=== PATIENT | female | born 1950 | race African-American/Black ===

== ENCOUNTER 2018-06-17 05:08 | Inpatient (IN) | payer OTHER ==
[2018-06-03 10:57] VITALS: BMI 30.4
[2018-06-17] MEDS ORDERED: LIDOCAINE HCL/PF 2% SDV 5ML VIAL ONE (07:16)
[2018-06-17] MEDS ORDERED: ONDANSETRON 4 MG/2 ML VIAL ONE (07:16)
[2018-06-17] MEDS ORDERED: DEXAMETHASONE SOD PHOSPHATE 4 MG/1 ML VIAL ONE (07:16)
[2018-06-17] MEDS ORDERED: SUCCINYLCHOLINE CHLORIDE 200 MG/10 ML VIAL ONE (07:16)
[2018-06-17] MEDS ORDERED: MIDAZOLAM HCL 2 MG/2 ML SINGLE DOSE VIAL ONE (07:16)
[2018-06-17] MEDS ORDERED: fentaNYL CITRATE 250 MCG/5 ML VIAL ONE (07:16)
[2018-06-17] MEDS ORDERED: PROPOFOL 20 ML ONE (07:16)
[2018-06-17] MEDS ORDERED: ROCURONIUM BROMIDE 50 MG/5 ML VIAL ONE (07:16)
[2018-06-17] MEDS ORDERED: LIDOCAINE HCL 2% (20ML MULTI-DOSE VIAL) NR ONE (07:27)
[2018-06-17] MEDS ORDERED: THROMBIN (BOVINE) 20,000 UNIT VIAL TP ONE (07:27)
[2018-06-17] MEDS ORDERED: BENZOIN TINCTURE SWABSTICK TP ONE (07:28)
[2018-06-17] MEDS ORDERED: DESFLURANE GAS 240 ML BOTTLE IH ONE (07:41)
--- NOTE | 2018-06-17 07:59 | HP ---
History & Physical Update - History History: No Change - Physical Physical: No Change - Assessment Assessment: No Change - Plan Plan: No Change (Full H&P in chart from Dr. Jimenez on 05/31/18)
[2018-06-17] MEDS ORDERED: ceFAZolin SODIUM 1 GM VIAL IVPB ONE (08:27)
[2018-06-17] MEDS ORDERED: LIDOCAINE 1%/EPI 1:100000 (50 ML MULTI DOSE VIAL) INF ONE (08:50)
[2018-06-17] MEDS ORDERED: VANCOMYCIN 1,000 MG VIAL (RESTRICTED TO ID ONLY) IVPB ONE (08:50)
[2018-06-17] MEDS ORDERED: VANCOMYCIN 1,000 MG VIAL (RESTRICTED TO ID ONLY) ONE (08:52)
[2018-06-17] MEDS ORDERED: ceFAZolin SODIUM 1 GM VIAL ONE (08:52)
[2018-06-17] MEDS ORDERED: ePHEDrine SULFATE 50 MG/1 ML AMPULE ONE (08:59)
[2018-06-17] MEDS ORDERED: GELATIN SPONGE,ABSORBABLE 1 GM PACKET TP ONE (09:24)
[2018-06-17] MEDS ORDERED: THROMBIN (BOVINE) 5,000 UNIT VIAL TP ONE (09:24)
[2018-06-17] MEDS ORDERED: NEOSTIGMINE METHYLSULFATE 0.5 MG/1 ML - 10 ML MDV ONE (09:48)
[2018-06-17] MEDS ORDERED: GLYCOPYRROLATE 0.2 MG/1 ML VIAL ONE (09:49)
[2018-06-17] MEDS ORDERED: morphine CARPU-JECT 4 MG/1 ML DISP.SYRIN IVPUSH PRN (10:14)
[2018-06-17] MEDS ORDERED: oxyCODONE HCL 5 MG TABLET PO PRN (10:14)
[2018-06-17] MEDS ORDERED: diphenhydrAMINE HCL 25 MG CAPSULE (FP) PO PRN (10:14)
--- NOTE | 2018-06-17 10:26 | OP ---
Operative Note - Note: Operative Date: 06/17/18 Pre-Operative Diagnosis: C5/6 disc herniation and spondylosis Operation: C5 Caudal hemicorpectomy with C6 rostral major hemicorpectomy, lordosis cheondoism and reconstruction with Peek Cage and anterior plate Post-Operative Diagnosis: Same as Pre-op Surgeon: Lalo Davenport Secondary Education Professor: Guerrero Mendez Anesthesiologist/FLORICULTURIST: Nitish Louis Anesthesia: General Estimated Blood Loss (mls): 10 Operative Report Dictated: Yes
[2018-06-17] MEDS: HYDROmorphone HCL CARPU-JECT 2 MG/1 ML DISP.SYRIN IVPUSH ONE ×4 (13:29→13:59)
[2018-06-17] MEDS ORDERED: HYDROmorphone HCl 2 MG/ML VIAL ONE (13:29)
--- NOTE | 2018-06-17 15:33 | PN ---
Progress Note, Physician Chief Complaint: patient seen and examined s/p neck surgery complaining of discomfort says morphine does not help her dilaudid works for her - Current Medication List Current Medications: Active Medications Diphenhydramine HCl (Benadryl -) 25 mg PO Q6H PRN PRN Reason: FOR ITCHING Docusate Sodium (Colace -) 100 mg PO TID [facility] Ferrous Sulfate (Feosol -) 325 mg PO DAILY@0800 [facility] Folic Acid (Folic Acid -) 1 mg PO DAILY [facility] Heparin Sodium (Porcine) (Heparin -) 5,000 unit SQ Q8H [facility] Hydromorphone HCl (Dilaudid Injection -) 0.5 mg IVPUSH ONCE ONE Stop: 06/17/18 13:30 Last Admin: 06/17/18 13:59 Dose: 0.5 mg Hydromorphone HCl (Dilaudid Injection -) 2 mg IVPB Q4H PRN PRN Reason: PAIN LEVEL 7 - 10 Cefazolin Sodium (Ancef 1 Gm Premixed Ivpb -) 1 gm in 50 mls @ 100 mls/hr IVPB Q8H-IV [facility] Stop: 06/18/18 17:59 Lactated Ringer's (Lactated Ringers Solution) 1,000 ml in 1,000 mls @ 125 mls/ hr IV ASDIR [facility] Ondansetron HCl (Zofran Injection) 4 mg IVPUSH Q6H PRN PRN Reason: NAUSEA Oxycodone HCl (Roxicodone -) 5 mg PO Q4H PRN PRN Reason: PAIN LEVEL 1-5 Oxycodone HCl (Roxicodone -) 10 mg PO Q4H PRN PRN Reason: PAIN LEVEL 6-10 - Objective Vital Signs: Vital Signs Temperature 98 F 06/17/18 14:55 Pulse Rate 56 L 06/17/18 14:55 Respiratory Rate 18 06/17/18 14:55 Blood Pressure 144/65 06/17/18 14:55 O2 Sat by Pulse Oximetry (%) 100 06/17/18 14:55 Constitutional: Yes: Calm Neck: Yes: Other (neck collar KIMI drain serosanginous drainage) Cardiovascular: Yes: Regular Rate and Rhythm, S1, S2 Respiratory: Yes: CTA Bilaterally Gastrointestinal: Yes: Normal Bowel Sounds, Soft Edema: No Neurological: Yes: Alert, Oriented Problem List - Problems (1) S/P neck surgery, follow-up exam Assessment/Plan: cervical collar iv dilaudid prn morphine iv not helping ct scan s/p anterior fusion of C5-C6 oral meds stool softner soft diet dvt ppx heparin sub q Code(s): Z09 - ENCNTR FOR F/U EXAM AFT TRTMT FOR COND OTH THAN MORIAH NEOPLM
[2018-06-17] MEDS: DOCUSATE SODIUM 100 MG CAPSULE (FP) PO SCH ×2 (16:18→21:48)
[2018-06-17] MEDS: LACTATED RINGERS SOLUTION 1,000 ML/1,000 ML INFUS.BAG IV SCH ×2 (16:18→21:49)
[2018-06-17] MEDS ORDERED: CEFAZOLIN 1 GM/D5W 1 GM/50 ML BAG IVPB SCH (16:30)
[2018-06-17] MEDS: ONDANSETRON 4 MG/2 ML VIAL IVPUSH PRN (17:06)
[2018-06-17] MEDS: HYDROmorphone HCl 2 MG/ML VIAL IVPB PRN (18:06)
--- NOTE | 2018-06-17 18:26 | CONSULT ---
Consult Consult Specialty:: Pain Management Referred by:: Dr Davenport Reason for Consultation:: Neck pain - History of Present Illness Chief Complaint: Neck pain s/p Cervical fusion History of Present Illness: 68 yr old female with Neck pain 10/ s/p cervical fusion today . Mentioned Dialudid helps. feeling very comfortable. 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: Alzheimer's, CVA, Dementia, Migraine, Multiple Sclerosis, Peripheral Neuropathy, Parkinson's, Seizure, Syncope, TIA, Vertigo, Other ...: No - Alcohol/Substance Use Hx Alcohol Use: Yes (rare) - Smoking History Smoking history: Former smoker Have you smoked in the past 12 months: No If you are a former smoker, when did you quit?: 30 years - Social History Usual Living Arrangement: With Child ADL: Independent Home Medications - Allergies Allergies/Adverse Reactions: Allergies Allergy/AdvReac Type Severity Reaction Status Date / Time Latex, Natural Rubber Allergy Severe Hives Verified 06/03/18 10:24 shellfish derived Allergy Severe Difficulty Verified 06/03/18 10:24 Breathing lisinopril Allergy Intermediate Swelling Verified 06/03/18 10:24 Penicillins Allergy Intermediate Rash Verified 06/03/18 10:24 - Home Medications Home Medications: Ambulatory Orders Albuterol Sulfate [Proair Respiclick] 90 mcg IH PRN PRN 06/03/18 Amlodipine Besylate 10 mg PO DAILY 06/03/18 Cetirizine HCl [Zyrtec -] 10 mg PO DAILY 06/03/18 Clonidine HCl [Clonidine HCl ER] 0.1 mg PO DAILY 06/03/18 Docusate Sodium [Colace -] 200 mg PO HS 06/03/18 Fluticasone/Salmeterol [Advair 250-50 Diskus] 1 each IH BID 06/03/18 Furosemide [Lasix] 20 mg PO DAILY 06/03/18 Losartan Potassium 100 mg PO DAILY 06/03/18 Metoprolol Succinate 50 mg PO DAILY 06/03/18 Montelukast Sodium [Singulair] 10 mg PO DAILY 06/03/18 Omalizumab [Xolair] 150 mg SQ PRN PRN 06/03/18 Omeprazole Magnesium [Prilosec Otc] 20 mg PO PRN PRN 06/03/18 Prednisolone 10 mg PO PRN PRN 06/03/18 Pregabalin [Lyrica] 50 mg PO TID 06/03/18 Review of Systems - Review of Systems Constitutional: reports: No Symptoms Eyes: reports: No Symptoms HENT: reports: No Symptoms Neck: reports: Other (pain , cervical collar) Cardiovascular: reports: No Symptoms Respiratory: reports: No Symptoms Gastrointestinal: reports: No Symptoms Genitourinary: reports: No Symptoms Neurological: reports: No Symptoms Psychiatric: reports: No Symptoms Pain Intensity: 10 Physical Exam Vital Signs: Vital Signs Temperature 97.6 F 06/17/18 16:30 Pulse Rate 56 L 06/17/18 16:30 Respiratory Rate 20 06/17/18 16:30 Blood Pressure 154/79 06/17/18 16:30 O2 Sat by Pulse Oximetry (%) 99 06/17/18 16:00 Constitutional: Yes: Well Nourished Eyes: Yes: WNL HENT: Yes: WNL Neck: Yes: Decreased ROM, Other (cervical collar) Cardiovascular: Yes: WNL Respiratory: Yes: WNL Gastrointestinal: Yes: WNL Musculoskeletal: Yes: WNL Edema: No Neurological: Yes: WNL Labs: Current Medications Amlodipine Besylate (Norvasc -) 10 mg PO DAILY [facility] Diphenhydramine HCl (Benadryl -) 25 mg PO Q6H PRN PRN Reason: FOR ITCHING Docusate Sodium (Colace -) 100 mg PO TID [facility] Last Admin: 06/17/18 16:18 Dose: Not Given Ferrous Sulfate (Feosol -) 325 mg PO DAILY@0800 [facility] Folic Acid (Folic Acid -) 1 mg PO DAILY [facility] Heparin Sodium (Porcine) (Heparin -) 5,000 unit SQ TID [facility] Hydromorphone HCl (Dilaudid Vial -) 2 mg IVPB Q4H PRN PRN Reason: PAIN LEVEL 7 - 10 Last Admin: 06/17/18 18:06 Dose: 2 mg Cefazolin Sodium (Ancef 1 Gm Premixed Ivpb -) 1 gm in 50 mls @ 100 mls/hr IVPB Q8H [facility] Stop: 06/18/18 16:29 Last Admin: 06/17/18 17:07 Dose: 100 mls/hr Lactated Ringer's (Lactated Ringers Solution) 1,000 ml in 1,000 mls @ 125 mls/ hr IV ASDIR [facility] Last Admin: 06/17/18 16:18 Dose: Not Given Losartan Potassium (Cozaar -) 100 mg PO DAILY [facility] Ondansetron HCl (Zofran Injection) 4 mg IVPUSH Q6H PRN PRN Reason: NAUSEA Last Admin: 06/17/18 17:06 Dose: 4 mg Oxycodone HCl (Roxicodone -) 5 mg PO Q4H PRN PRN Reason: PAIN LEVEL 1-5 Oxycodone HCl (Roxicodone -) 10 mg PO Q4H PRN PRN Reason: PAIN LEVEL 6-10 Pregabalin (Lyrica -) 50 mg PO TID [facility] Problem List - Problems (1) Post-op pain Code(s): G89.18 - OTHER ACUTE POSTPROCEDURAL PAIN Assessment/Plan discuss in detail and answered all her questions. Family member was present. on Diludid 2 mg IV q4 PRN she does not want to change the current regimen. agree with current care please call me if any change in pain. Thanks for your kind referral Dr. Carmen [phone]
[2018-06-17] MEDS: PREGABALIN 50 MG CAPSULE PO SCH (21:48)
[2018-06-17] MEDS: HEPARIN NA (PORCINE) 5,000 UNITS/ML 1ML VIAL SQ SCH (21:48)
[2018-06-18] MEDS ORDERED: DEXTROSE 5%-WATER - 50 ML IVPB ONE ×2 (00:07→08:41)
[2018-06-18] MEDS ORDERED: ceFAZolin SODIUM 1 GM VIAL ONE ×2 (00:07→08:41)
[2018-06-18] MEDS: oxyCODONE HCL 5 MG TABLET PO PRN ×2 (00:14→11:06)
[2018-06-18] MEDS ORDERED: CEFAZOLIN 1 GM in DEXTROSE 5%-WATER - 50 ML IVPB SCH (02:00)
[2018-06-18] MEDS: PREGABALIN 50 MG CAPSULE PO SCH ×2 (06:18→13:12)
[2018-06-18] MEDS: DOCUSATE SODIUM 100 MG CAPSULE (FP) PO SCH ×2 (06:18→13:12)
[2018-06-18] MEDS: HEPARIN NA (PORCINE) 5,000 UNITS/ML 1ML VIAL SQ SCH ×3 (06:18→21:33)
[2018-06-18] MEDS: LACTATED RINGERS SOLUTION 1,000 ML/1,000 ML INFUS.BAG IV SCH ×3 (06:29→15:14)
[2018-06-18] MEDS: HYDROmorphone HCl 2 MG/ML VIAL IVPB PRN ×2 (06:29→21:33)
[2018-06-18 07:43] LABS: BASO % 0.5 % (0-2.0); EOS % 0.3 % (0-4.5); HEMATOCRIT 34.7 % (32.4-45.2); HEMOGLOBIN 11.4 GM/dL (10.7-15.3); LYMPH % 15.6 % (8-40); MCH 28.1 pg (25.7-33.7); MCHC 32.9 g/dl (32.0-36.0); MEAN CELL VOLUME 85.4 fl (80-96); MONO % 12.6 % (3.8-10.2); PLATELET COUNT 210 K/MM3 (134-434); RBC 4.07 M/mm3 (3.60-5.2); RDW 13.5 % (11.6-15.6); WHITE BLOOD COUNT 7.2 K/mm3 (4.0-10.0)
[2018-06-18] MEDS ORDERED: FERROUS SO4 325 MG TABLET (FP) PO SCH (08:00)
[2018-06-18 08:13] LABS: ALBUMIN 3.5 g/dl (3.4-5.0); ALK PHOS 66 U/L (45-117); ANION GAP 7 MMOL/L (8-16); BILIRUBIN,TOTAL 0.4 mg/dL (0.2-1); BLOOD UREA NITROGEN 14 mg/dL (7-18); CHLORIDE 106 mmol/L (98-107); CO2 28 mmol/L (21-32); GLUCOSE,RANDOM 120 mg/dL (74-106); POTASSIUM 3.9 mmol/L (3.5-5.1); SGOT/AST 19 U/L (15-37); SGPT/ALT 19 U/L (13-61); SODIUM 140 mmol/L (136-145); TOT PROT 7.6 g/dl (6.4-8.2)
--- NOTE | 2018-06-18 08:25 | PN ---
Progress Note (short form) - Note Progress Note: 68yo F s/p C5/6 ACDF POD 1, pt seen and examined at bedside. Pt complaining of sore throat and neck pain. Pt denies weakness or numbness. No fever, chills, n /v. Last Vital Signs Temp Pulse Resp BP Pulse Ox 99.9 F H 65 20 152/76 99 06/18/18 06:00 06/18/18 06:00 06/18/18 06:00 06/18/18 06:00 06/17/18 21:00 CBC, BMP 06/18/18 07:15 06/18/18 07:15 PE: Gen: A&O X3 Resp: breathing comfortably Neck: incision clean with no erythema or discharge, drain in place with serosanguinous drainage. Output: 55ml Upper Ext: no weakness or numbness Problem List - Problems (1) S/P neck surgery, follow-up exam Assessment/Plan: Plan -pt is stable, will remove drain later this afternoon, consider discharging later today. -ordered throat losengers for sore throat, explained is very normal for after surgery and should improve. -OOB/ambulate -will follow up with Dr. Davenport in 2 weeks as outpatient Case discussed with Dr. Davenport, who agrees with plan Code(s): Z09 - ENCNTR FOR F/U EXAM AFT TRTMT FOR COND OTH THAN MORIAH FULLER
[2018-06-18] MEDS: amLODIPine BESYLATE 10 MG TABLET (FP) PO SCH (08:59)
[2018-06-18] MEDS: LOSARTAN POTASSIUM 50 MG TABLET (FP) PO SCH (08:59)
[2018-06-18] MEDS: ONDANSETRON 4 MG/2 ML VIAL IVPUSH PRN (09:03)
[2018-06-18] MEDS ORDERED: FOLIC ACID 1 MG TABLET (FP) PO SCH (10:00)
--- NOTE | 2018-06-18 10:40 | PN ---
Progress Note, Physician Chief Complaint: S/p anterior fusion c5-c6 History of Present Illness: Previous notes and events reviewed awake and alert NAD sts pain is better controlled with dilaudid - Current Medication List Current Medications: Active Medications Amlodipine Besylate (Norvasc -) 10 mg PO DAILY [facility] Last Admin: 06/18/18 08:59 Dose: 10 mg Benzocaine/Menthol (Cepacol Lozenge -) 1 each MM PRN PRN PRN Reason: SORE THROAT Diphenhydramine HCl (Benadryl -) 25 mg PO Q6H PRN PRN Reason: FOR ITCHING Docusate Sodium (Colace -) 100 mg PO TID [facility] Last Admin: 06/18/18 06:18 Dose: 100 mg Ferrous Sulfate (Feosol -) 325 mg PO DAILY@0800 [facility] Last Admin: 06/18/18 08:58 Dose: 325 mg Folic Acid (Folic Acid -) 1 mg PO DAILY [facility] Last Admin: 06/18/18 08:59 Dose: 1 mg Heparin Sodium (Porcine) (Heparin -) 5,000 unit SQ TID [facility] Last Admin: 06/18/18 06:18 Dose: 5,000 unit Hydromorphone HCl (Dilaudid Vial -) 2 mg IVPB Q4H PRN PRN Reason: PAIN LEVEL 7 - 10 Last Admin: 06/18/18 06:29 Dose: 2 mg Lactated Ringer's (Lactated Ringers Solution) 1,000 ml in 1,000 mls @ 125 mls/ hr IV ASDIR [facility] Last Admin: 06/18/18 06:29 Dose: 125 mls/hr Losartan Potassium (Cozaar -) 100 mg PO DAILY [facility] Last Admin: 06/18/18 08:59 Dose: 100 mg Non-Formulary Medication (Clonidine Hcl [Clonidine Hcl Er]) 0.1 mg PO DAILY [facility] Ondansetron HCl (Zofran Injection) 4 mg IVPUSH Q6H PRN PRN Reason: NAUSEA Last Admin: 06/18/18 09:03 Dose: 4 mg Oxycodone HCl (Roxicodone -) 5 mg PO Q4H PRN PRN Reason: PAIN LEVEL 1-5 Oxycodone HCl (Roxicodone -) 10 mg PO Q4H PRN PRN Reason: PAIN LEVEL 6-10 Last Admin: 06/18/18 00:14 Dose: 10 mg Pregabalin (Lyrica -) 50 mg PO TID [facility] Last Admin: 06/18/18 06:18 Dose: 50 mg - Objective Vital Signs: Vital Signs Temperature 99.9 F H 06/18/18 06:00 Pulse Rate 65 06/18/18 06:00 Respiratory Rate 20 06/18/18 06:00 Blood Pressure 152/76 06/18/18 06:00 O2 Sat by Pulse Oximetry (%) 99 06/17/18 21:00 Constitutional: Yes: No Distress, Calm Eyes: Yes: Conjunctiva Clear HENT: Yes: Atraumatic Neck: Yes: Other (c-collar) Cardiovascular: Yes: Regular Rate and Rhythm Respiratory: Yes: Regular, CTA Bilaterally Gastrointestinal: Yes: Normal Bowel Sounds, Soft Musculoskeletal: Yes: WNL Extremities: Yes: WNL Edema: No Wound/Incision: Yes: Dressing Dry and Intact Neurological: Yes: Alert, Oriented Psychiatric: Yes: Alert, Oriented Labs: CBC, BMP 06/18/18 07:15 06/18/18 07:15 Problem List - Problems (1) S/P neck surgery, follow-up exam Assessment/Plan: -surgery on board -pain management -KIMI drain in place, monitor output -incentive spirometer -c-collar for 23hrs/day -stool softener Code(s): Z09 - ENCNTR FOR F/U EXAM AFT TRTMT FOR COND OTH HEATHER FULLER Assessment/Plan see problem list dvt ppx PT
--- NOTE | 2018-06-18 10:40 | PN ---
Progress Note (short form) - Note Progress Note: Anesthesiology Post-op POD#1 s/p cervical ACDF under [place]. Pt. is resting in bed. She does c/o some pain but states that it is improved compared to yesterday. VSS. No n/v. 68 y.o. woman with stable post-operative course. Encouraged incentive spirometry. Continue current analgesia regimen and further management per primary team.
--- NOTE | 2018-06-18 15:28 | CONSULT ---
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 Pt reported trying to eat chicken and broccoli but it "got stuck" and then tried water and that "got stuck and made her cough". 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: Alzheimer's, CVA, Dementia, Migraine, Multiple Sclerosis, Peripheral Neuropathy, Parkinson's, Seizure, Syncope, TIA, Vertigo, Other ...: No - Smoking History Smoking history: Former smoker Have you smoked in the past 12 months: No If you are a former smoker, when did you quit?: 30 years - Alcohol/Substance Use Hx Alcohol Use: Yes (rare) - Social History ADL: Independent History - Admission Reason For Visit: DISC HERNIATION AND SPONDYLOSIS - General Mental Status: Alert and Oriented, Awake and Alert, Able to Follow Commands Attention: Intact Ability to Follow Directions: Excellent Head/Neck Control: Needs Assist (Cervical collar) - Hearing Hearing: Normal Speech Evaluation - Communication Primary Language: GERMAN Communication: Yes: Within Normal Limits - Speech Production Able to Make Needs Known: Yes: WNL Intelligibility: Yes: WNL - Speech Characteristics Voice Loudness: Normal Voice Pitch: Yes: Mildly Low Voice Phonatory-based Quality: Yes: Harsh Articulation: Yes: Precise - Language/Auditory Comprehension Follows: Yes: 2 Stage Simple Commands - Memory/Perception senior living Memory: Yes: WNL Short Term Memory: Yes: WNL - Swallow Evaluation/Bedside Assessment Current Nutritional Intake: Soft, Thin Liquids Dentition: Yes: Adequate Facial Symmetry at Rest: Symmetrical Facial Symmetry on Retraction: Symmetrical Facial Movement: Controlled Sensation: Normal Against Resistance Opening: Normal Against Resistance Closing: Normal Pucker Lips: Normal Lingual Movement: Normal, Symmetric Lingual Speed of Movement: Normal Lingual Movement Strgth Against Opposition: Normal Lingual Movement Characteristics: Normal Velopharyngeal Movement: Normal Laryngeal Movement: Reduced Excursion, Labored,delay initiation Labial Seal: WFL Oral Prep Time: WFL A-P Transit: WFL Timing of Swallow: Delayed Odynophagia: Pharyngeal Coughing/Throat Clear: Yes Change in Voice: Yes Recommendations - Speech Evaluation, Impression/Plan Impression: Grimaces, thoat clearing, vocal wetness,grabs chest with trials of thin water and thickened nectar water. Reduced laryngeal excursion. Stasis/ aspiration suspected secondary to edema s/p cervical surgery performed yesterday. - Dysphagia Impressions/Plan Swallowing Skills: Impaired Dysphagia Impressions: Moderate Impairment, Suspect Aspiration *Silent aspiration: cannot be R/O at bedside Recommendations: Modified Barium Swallow (Thursday, as indicated.), Other ( reviewed with Dr. Kate. Decadron will be ordered.) - Recommendations Diet Consistency: NPO, Other (Can medication be switched to IV or liquid?) Liquids: NPO Supplement: IVF if notcontraindicated (Clinimix?)
[2018-06-18] MEDS ORDERED: ACETAMINOPHEN 1000 MG/100 ML VIAL (NON FORMULARY) IVPB PRN (15:56)
[2018-06-18] MEDS: DEXAMETHASONE SOD PHOSPHATE 4 MG/1 ML VIAL IVPB SCH ×2 (17:07→21:33)
[2018-06-18] MEDS: BENZOCAINE/MENTH/CETYLPYRD CL 1 EACH LOZENGE MM PRN ×2 (18:48→21:36)
[2018-06-19] MEDS: DEXAMETHASONE SOD PHOSPHATE 4 MG/1 ML VIAL IVPB SCH ×3 (03:03→22:29)
[2018-06-19] MEDS: HEPARIN NA (PORCINE) 5,000 UNITS/ML 1ML VIAL SQ SCH ×3 (06:19→21:59)
[2018-06-19 06:27] LABS: HEMATOCRIT 32.5 % (32.4-45.2); HEMOGLOBIN 10.7 GM/dL (10.7-15.3); MCH 28.3 pg (25.7-33.7); MCHC 32.8 g/dl (32.0-36.0); MEAN CELL VOLUME 86.2 fl (80-96); MEAN PLT VOLUME 8.1 fl (7.5-11.1); PLATELET COUNT 196 K/MM3 (134-434); RBC 3.77 M/mm3 (3.60-5.2); RDW 13.4 % (11.6-15.6); WHITE BLOOD COUNT 8.3 K/mm3 (4.0-10.0)
[2018-06-19 06:52] LABS: ALBUMIN 3.2 g/dl (3.4-5.0); ALK PHOS 57 U/L (45-117); ANION GAP 6 MMOL/L (8-16); BILIRUBIN,TOTAL 0.4 mg/dL (0.2-1); BLOOD UREA NITROGEN 14 mg/dL (7-18); CALCIUM 8.8 mg/dL (8.5-10.1); CHLORIDE 106 mmol/L (98-107); CO2 26 mmol/L (21-32); CREATININE 0.8 mg/dL (0.55-1.3); GLUCOSE,RANDOM 121 mg/dL (74-106); POTASSIUM 3.8 mmol/L (3.5-5.1); SGOT/AST 15 U/L (15-37); SGPT/ALT 16 U/L (13-61); SODIUM 138 mmol/L (136-145); TOT PROT 7.3 g/dl (6.4-8.2)
--- NOTE | 2018-06-19 09:42 | PN ---
Progress Note, Physician - Current Medication List Current Medications: Active Medications Acetaminophen (Ofirmev Injection -) 1,000 mg IVPB Q6H PRN PRN Reason: PAIN LEVEL 1-5 Amlodipine Besylate (Norvasc -) 10 mg PO DAILY [facility] Last Admin: 06/18/18 08:59 Dose: 10 mg Benzocaine/Menthol (Cepacol Lozenge -) 1 each MM PRN PRN PRN Reason: SORE THROAT Last Admin: 06/18/18 21:36 Dose: 1 each Diphenhydramine HCl (Benadryl Injection -) 25 mg IVPB Q12H PRN PRN Reason: FOR ITCHING Last Admin: 06/18/18 18:48 Dose: 25 mg Heparin Sodium (Porcine) (Heparin -) 5,000 unit SQ TID [facility] Last Admin: 06/19/18 06:19 Dose: 5,000 unit Hydromorphone HCl (Dilaudid Vial -) 2 mg IVPB Q4H PRN PRN Reason: PAIN LEVEL 7 - 10 Last Admin: 06/18/18 21:33 Dose: 2 mg Lactated Ringer's (Lactated Ringers Solution) 1,000 ml in 1,000 mls @ 125 mls/ hr IV ASDIR [facility] Last Admin: 06/18/18 15:14 Dose: 125 mls/hr Losartan Potassium (Cozaar -) 100 mg PO DAILY [facility] Last Admin: 06/18/18 08:59 Dose: 100 mg Non-Formulary Medication (Clonidine Hcl [Clonidine Hcl Er]) 0.1 mg PO DAILY [facility] Ondansetron HCl (Zofran Injection) 4 mg IVPUSH Q6H PRN PRN Reason: NAUSEA Last Admin: 06/18/18 09:03 Dose: 4 mg Pregabalin (Lyrica -) 50 mg PO TID [facility] Last Admin: 06/18/18 13:12 Dose: 50 mg - Objective Vital Signs: Vital Signs Temperature 98.6 F 06/19/18 06:40 Pulse Rate 56 L 06/19/18 06:40 Respiratory Rate 20 06/19/18 06:40 Blood Pressure 96/66 06/19/18 06:40 O2 Sat by Pulse Oximetry (%) 99 06/18/18 09:00 Cardiovascular: Yes: Regular Rate and Rhythm Respiratory: Yes: Regular, CTA Bilaterally Gastrointestinal: Yes: Normal Bowel Sounds, Soft Labs: CBC, BMP 06/19/18 06:00 06/19/18 06:00 Problem List - Problems (1) S/P neck surgery, follow-up exam Assessment/Plan: -pain management -KIMI drain in place, monitor output -incentive spirometer -c-collar for 23hrs/day -stool softener Operative Date: 06/17/18 Pre-Operative Diagnosis: C5/6 disc herniation and spondylosis Operation: C5 Caudal hemicorpectomy with C6 rostral major hemicorpectomy, lordosis mandaeism and reconstruction with Peek Cage and anterior plate Post-Operative Diagnosis: Same as Pre-op Surgeon: Lalo Davenport Code(s): Z09 - ENCNTR FOR F/U EXAM AFT TRTMT FOR COND OTH THAN MALIG NEOPLM (2) Dysphagia Assessment/Plan: SEEN BY ALFONZO [facility] [place] Code(s): R13.10 - DYSPHAGIA, UNSPECIFIED
[2018-06-19] MEDS: HYDROmorphone HCl 2 MG/ML VIAL IVPB PRN (11:10)
[2018-06-19] MEDS: BENZOCAINE/MENTH/CETYLPYRD CL 1 EACH LOZENGE MM PRN (19:05)
[2018-06-19] MEDS ORDERED: PT OWN MED DRAWER 7, Y5N ONE (21:07)
[2018-06-19] MEDS: LACTATED RINGERS SOLUTION 1,000 ML/1,000 ML INFUS.BAG IV SCH (22:33)
[2018-06-20] MEDS ORDERED: PT OWN MED DRAWER 7, Y5N ONE (06:11)
[2018-06-20] MEDS: DEXAMETHASONE SOD PHOSPHATE 4 MG/1 ML VIAL IVPB SCH ×2 (06:37→14:09)
[2018-06-20] MEDS: HEPARIN NA (PORCINE) 5,000 UNITS/ML 1ML VIAL SQ SCH ×3 (06:37→22:32)
--- NOTE | 2018-06-20 09:37 | PN ---
Progress Note, Physician - Current Medication List Current Medications: Active Medications Acetaminophen (Ofirmev Injection -) 1,000 mg IVPB Q6H PRN PRN Reason: PAIN LEVEL 1-5 Last Admin: 06/20/18 01:34 Dose: 1,000 mg Amlodipine Besylate (Norvasc -) 10 mg PO DAILY [facility] Last Admin: 06/18/18 08:59 Dose: 10 mg Benzocaine/Menthol (Cepacol Lozenge -) 1 each MM PRN PRN PRN Reason: SORE THROAT Last Admin: 06/19/18 19:05 Dose: 1 each Dexamethasone Sodium Phosphate (Decadron Injection -) 4 mg IVPB Q8H [facility] Last Admin: 06/20/18 06:37 Dose: 4 mg Diphenhydramine HCl (Benadryl Injection -) 25 mg IVPB Q12H PRN PRN Reason: FOR ITCHING Last Admin: 06/19/18 11:59 Dose: 25 mg Heparin Sodium (Porcine) (Heparin -) 5,000 unit SQ TID [facility] Last Admin: 06/20/18 06:37 Dose: 5,000 unit Hydromorphone HCl (Dilaudid Vial -) 2 mg IVPB Q4H PRN PRN Reason: PAIN LEVEL 7 - 10 Last Admin: 06/19/18 11:10 Dose: 2 mg Lactated Ringer's (Lactated Ringers Solution) 1,000 ml in 1,000 mls @ 125 mls/ hr IV ASDIR [facility] Last Admin: 06/19/18 22:33 Dose: 125 mls/hr Losartan Potassium (Cozaar -) 100 mg PO DAILY [facility] Last Admin: 06/18/18 08:59 Dose: 100 mg Non-Formulary Medication (Clonidine Hcl [Clonidine Hcl Er]) 0.1 mg PO DAILY [facility] Ondansetron HCl (Zofran Injection) 4 mg IVPUSH Q6H PRN PRN Reason: NAUSEA Last Admin: 06/18/18 09:03 Dose: 4 mg Pantoprazole Sodium (Protonix Iv) 40 mg IVPUSH BID [facility] Pregabalin (Lyrica -) 50 mg PO TID [facility] Last Admin: 06/18/18 13:12 Dose: 50 mg - Objective Vital Signs: Vital Signs Temperature 98 F 06/20/18 05:52 Pulse Rate 68 06/20/18 05:52 Respiratory Rate 20 06/20/18 05:52 Blood Pressure 117/65 06/20/18 05:52 O2 Sat by Pulse Oximetry (%) 100 06/19/18 21:00 Cardiovascular: Yes: Regular Rate and Rhythm Respiratory: Yes: Regular, CTA Bilaterally Gastrointestinal: Yes: Normal Bowel Sounds, Soft Labs: CBC, BMP 06/19/18 06:00 06/19/18 06:00 Problem List - Problems (1) S/P neck surgery, follow-up exam Assessment/Plan: -pain management -KIMI drain in place, monitor output -incentive spirometer -c-collar for 23hrs/day -stool softener Operative Date: 06/17/18 Pre-Operative Diagnosis: C5/6 disc herniation and spondylosis Operation: C5 Caudal hemicorpectomy with C6 rostral major hemicorpectomy, lordosis gnosticism and reconstruction with Peek Cage and anterior plate Post-Operative Diagnosis: Same as Pre-op Surgeon: Lalo Davenport Code(s): Z09 - ENCNTR FOR F/U EXAM AFT TRTMT FOR COND OTH THAN MALIG NEOPLM (2) Dysphagia Assessment/Plan: SE[place] [facility] [place](s): R13.10 - DYSPHAGIA, UNSPECIFIED
[2018-06-20] MEDS: PANTOPRAZOLE SODIUM 40 MG VIAL IVPUSH SCH ×2 (10:29→22:33)
[2018-06-20] MEDS: LACTATED RINGERS SOLUTION 1,000 ML/1,000 ML INFUS.BAG IV SCH ×2 (10:30→20:13)
[2018-06-20] MEDS: HYDROmorphone HCl 2 MG/ML VIAL IVPB PRN (10:52)
[2018-06-20 12:36] LABS: ALBUMIN 3.4 g/dl (3.4-5.0); ALK PHOS 60 U/L (45-117); ANION GAP 7 MMOL/L (8-16); BILIRUBIN,TOTAL 0.3 mg/dL (0.2-1); BLOOD UREA NITROGEN 17 mg/dL (7-18); CALCIUM 9.6 mg/dL (8.5-10.1); CHLORIDE 106 mmol/L (98-107); CO2 26 mmol/L (21-32); CREATININE 0.8 mg/dL (0.55-1.3); GLUCOSE,RANDOM 99 mg/dL (74-106); POTASSIUM 4.1 mmol/L (3.5-5.1); SGOT/AST 15 U/L (15-37); SGPT/ALT 17 U/L (13-61); SODIUM 138 mmol/L (136-145); TOT PROT 7.9 g/dl (6.4-8.2)
[2018-06-20 13:12] LABS: BASO % 0.2 % (0-2.0); HEMATOCRIT 35.3 % (32.4-45.2); HEMOGLOBIN 11.4 GM/dL (10.7-15.3); LYMPH % 10.6 % (8-40); MCH 27.9 pg (25.7-33.7); MCHC 32.4 g/dl (32.0-36.0); MEAN PLT VOLUME 9.2 fl (7.5-11.1); MONO % 7.3 % (3.8-10.2); NEUT % 81.9 % (42.8-82.8); PLATELET COUNT 222 K/MM3 (134-434); RBC 4.11 M/mm3 (3.60-5.2); RDW 13.5 % (11.6-15.6)
[2018-06-20 13:20] LABS: WHITE BLOOD COUNT 7.8 K/mm3 (4.0-10.0)
[2018-06-20 15:12] LABS: PLATELET ESTIMATE ADEQUATE
--- NOTE | 2018-06-20 17:22 | PN ---
Progress Note (short form) - Note Progress Note: Patient with significant improvement in pain and swallowing. Plan KIMI removal early Thursday morning. If patient tolerates soft diet, she may be discharged and follow up for swallowing therapy as an outpatient. All questions answered.
[2018-06-20] MEDS: BENZOCAINE/MENTH/CETYLPYRD CL 1 EACH LOZENGE MM PRN (20:23)
[2018-06-21] MEDS: HYDROmorphone HCl 2 MG/ML VIAL IVPB PRN ×2 (01:18→13:44)
[2018-06-21] MEDS: DEXAMETHASONE SOD PHOSPHATE 4 MG/1 ML VIAL IVPB SCH ×2 (01:18→13:33)
[2018-06-21] MEDS: BENZOCAINE/MENTH/CETYLPYRD CL 1 EACH LOZENGE MM PRN (01:27)
[2018-06-21] MEDS: LACTATED RINGERS SOLUTION 1,000 ML/1,000 ML INFUS.BAG IV SCH (05:30)
[2018-06-21] MEDS: HEPARIN NA (PORCINE) 5,000 UNITS/ML 1ML VIAL SQ SCH ×3 (06:26→22:14)
[2018-06-21] MEDS: LOSARTAN POTASSIUM 50 MG TABLET (FP) PO SCH (09:49)
[2018-06-21] MEDS: amLODIPine BESYLATE 10 MG TABLET (FP) PO SCH (09:49)
--- NOTE | 2018-06-21 09:51 | PN ---
Progress Note, [employer]HOOTER - Note Progress Note: Selected Entries 06/17/18 06/17/18 06/17/18 06:49 10:11 14:55 Supper Temperature 98.2 F 98 F 98 F 06/17/18 06/17/18 06/17/18 16:00 16:30 18:30 Supper 50% Temperature 98 F 97.6 F 06/17/18 06/18/18 06/18/18 19:38 06:00 14:39 Supper Temperature 97.6 F 99.9 F H 98.6 F 06/20/18 06/20/18 06/20/18 05:52 10:00 17:28 Supper Temperature 98 F 98.0 F 98.1 F 06/20/18 06/20/18 06/21/18 19:29 22:00 01:54 Supper NPO NPO Temperature 97.6 F 98.2 F 06/21/18 07:03 Supper Temperature 98.1 F Laboratory Tests 06/18/18 06/19/18 06/20/18 07:15 06:00 10:34 WBC 7.2 8.3 7.8 Pt demonstrates significant improvement in comfort and swallowing function. Pt was NPO over the weekend. Soft diet and thin liquids ordered this am. Pt completed 100% of her breakfast. When reassessed, pt clears her throat and coughs briefly while drinking, and rubs her chest with solids, reporting that it sticks. I suspect much improved but may still be at risk, requiring downgraded diet until she recovers further. Pending d/c. Consider MBS to r/o aspiration/stasis/safest diet at this time. [employer] concurs.
[2018-06-21] MEDS: PANTOPRAZOLE SODIUM 40 MG VIAL IVPUSH SCH (10:00)
--- NOTE | 2018-06-21 10:35 | CONS ---
DATE OF CONSULTATION: 06/21/2018 PHYSICAL MEDICINE REHABILITATION CONSULTATION The patient is a 68-year-old woman with past medical history of bilateral total knee replacements, lumbar fusion, and cervical spondylotic myelopathy who was admitted, undergoing surgery performed by Dr. Oliveira on June 17, 2018, including interbody cage at C5-6 with fusion. Patient was placed in a hard collar and had some postoperative difficult with swallowing which is improving. She states the numbness, tingling in her hands has resolved after surgery. Postoperative blood work included multiple CBCs which were stable, the last on June 20, WBC 7.8, hemoglobin 11.4, platelet count 22. Chemistry also within normal limits including chemistry on June 20 which showed a sodium of 138, potassium 4.1, chloride 106, BUN 17, creatinine 0.8. Patient was seen by physical therapy undergoing transferring with min assist [id number], mod assist [id number], ambulates 70 feet with a rolling walker min assist of 2. She also had a CT on June 17 which showed some postop swelling and drain. She has had 1 small bowel movement and has chronic pain in her back. She was also still getting therapy for her left total knee replacement done about a year ago. REVIEW OF PAST MEDICAL AND SURGICAL HISTORY: Asthma, gastroesophageal reflux disease, thyroid disorder, hypertension, cataracts, work injury suffering injuries to the neck, lower back, and knees on December 28, 2013, which was a fall, SOCIAL HISTORY: Lives with 2 children in a house 3 steps to enter and 14 to the second level. Premorbidly she was ambulating with a cane limited due to the left total knee replacement about a year ago. Current function as above. REVIEW OF SYSTEMS: No lightheadedness or dizziness. No blurry vision or double vision. No nausea or vomiting. Again, she was having difficulty with swallowing but has been n.p.o. She states she was going to have her diet advanced by Dr. Oliveira. No numbness or tingling in the upper or lower extremities. No fever or chills. Again, 1 small bowel movement postop. Chronic pain in her lower back. The left knee is stiff, but overall improved. PHYSICAL EXAMINATION: General: Friendly woman sitting at the side of the bed. She is wearing a hard cervical collar and is in no acute distress. She is awake and cooperative. HEENT: Normocephalic and atraumatic. Her extraocular muscles appear intact. Neck: Again, a hard cervical collar. Range of motion not tested. Wound covered. Lumbar Spine: Mild diffuse tenderness, limited range of motion, and scar from prior surgery. She also has scars on both knees from total knee replacements which are healed without any surrounding erythema. No pitting edema or calf tenderness in the lower extremities. Neuromuscular: She is awake, alert, oriented x3. Cranial nerves II through XII are grossly intact. Good strength and range in her upper extremities except for the shoulder girdle which is slightly limited 4/5. She has normal sensation to light touch and pinprick in the lower extremities. She lacks a little bit of knee extension, left more than right knee, in a sitting position. Good dorsiflexion and plantarflexion, normal sensation, and fairly good strength at least 4+/5 proximally in both the hip girdle and knee extensors in the left, 5-/5 on the right side. Unsteady standing but good sitting balance. OVERALL IMPRESSION: 1. Deficits in mobility activities of daily living, multifactorial. 2. Status post work injury, December 28, 2013. 3. Spondylotic cervical myelopathy, status post interbody cage at C5-6 and fusion, Dr. Oliveira on June 17. 4. Postoperative difficulty swallowing, resolving. 5. Constipation, 1 small bowel movement after surgery. 6. Bilateral total knee replacements with the left in 2017 and the right 2016. 7. History of lumbar fusion, 2016. 8. Elevated risk for deep vein thrombosis due to immobility. 9. Asthma. 10. Gastroesophageal reflux disease. 11. Hypertension. 12. Cataracts. PLAN/SUGGESTION: 1. Physical therapy to resume including bed mobility, transfers, gait training, strengthening, reconditioning. 2. Agree with subcu heparin for DVT prophylaxis until more mobile. 3. Collar per Dr. Oliveira. 4. Patient also is using a lumbosacral orthosis with therapy per Dr. Oliveira. 5. Pain control. 6. Bowel regimen. Would consider further medication if she does not have a normal bowel movement today. 7. Skin precaution. 8. Will probably need acute rehabilitation for physical and occupational therapy, possibly some speech therapy for swallowing if this remains problematic. Thank you for this referral. NEELA MARTI M.D. TAMELA/[id number]
--- NOTE | 2018-06-21 10:51 | PN ---
Progress Note (short form) - Note Progress Note: 68yo F s/p C5/6 ACDF, seen and examined at bedside. Pt states that she feels much better, states that her sore throat and neck pain is much improved. Pt requesting to go home today. Pt denies fever, chills, n/v. No arm weakness or numbness. Last Vital Signs Temp Pulse Resp BP Pulse Ox 98.1 F 54 L 20 149/95 100 06/21/18 07:03 06/21/18 07:03 06/21/18 07:03 06/21/18 07:03 06/19/18 21:00 CBC, BMP 06/20/18 10:34 06/20/18 10:34 PE: Gen: A&O x3 Resp: breathing comfortably Ext: no edema, no weakness, or numbness Neck: incision is clean with no erythema or discharge, clean dressing placed. Problem List - Problems (1) S/P neck surgery, follow-up exam Assessment/Plan: Plan -will adv pt to a soft diet and clear for discharge home. -pt should follow up with Dr. Davenport in 2 weeks Code(s): Z09 - ENCNTR FOR F/U EXAM AFT TRTMT FOR COND OTH HEATHER FULLER
--- NOTE | 2018-06-21 10:56 | PN ---
Progress Note, Physician Chief Complaint: S/p anterior fusion c5-c6 History of Present Illness: Previous notes and events reviewed awake and alert NAD for MBS today--patient seen by speech and noted with coughing with food and rubbing chest while eating - Current Medication List Current Medications: Active Medications Acetaminophen (Ofirmev Injection -) 1,000 mg IVPB Q6H PRN PRN Reason: PAIN LEVEL 1-5 Last Admin: 06/20/18 01:34 Dose: 1,000 mg Amlodipine Besylate (Norvasc -) 10 mg PO DAILY [facility] Last Admin: 06/21/18 09:49 Dose: Not Given Benzocaine/Menthol (Cepacol Lozenge -) 1 each MM PRN PRN PRN Reason: SORE THROAT Last Admin: 06/21/18 01:27 Dose: 1 each Dexamethasone Sodium Phosphate (Decadron Injection -) 4 mg IVPB Q12H [facility] Last Admin: 06/21/18 01:18 Dose: 4 mg Diphenhydramine HCl (Benadryl Injection -) 25 mg IVPB Q12H PRN PRN Reason: FOR ITCHING Last Admin: 06/21/18 04:15 Dose: 25 mg Heparin Sodium (Porcine) (Heparin -) 5,000 unit SQ TID [facility] Last Admin: 06/21/18 06:26 Dose: 5,000 unit Hydromorphone HCl (Dilaudid Vial -) 2 mg IVPB Q4H PRN PRN Reason: PAIN LEVEL 7 - 10 Last Admin: 06/21/18 01:18 Dose: 2 mg Lactated Ringer's (Lactated Ringers Solution) 1,000 ml in 1,000 mls @ 125 mls/ hr IV ASDIR [facility] Last Admin: 06/21/18 05:30 Dose: 125 mls/hr Losartan Potassium (Cozaar -) 100 mg PO DAILY [facility] Last Admin: 06/21/18 09:49 Dose: Not Given Non-Formulary Medication (Clonidine Hcl [Clonidine Hcl Er]) 0.1 mg PO DAILY [facility] Ondansetron HCl (Zofran Injection) 4 mg IVPUSH Q6H PRN PRN Reason: NAUSEA Last Admin: 06/18/18 09:03 Dose: 4 mg Pantoprazole Sodium (Protonix Iv) 40 mg IVPUSH BID [facility] Last Admin: 06/21/18 10:00 Dose: 40 mg Pregabalin (Lyrica -) 50 mg PO TID [facility] Last Admin: 06/18/18 13:12 Dose: 50 mg - Objective Vital Signs: Vital Signs Temperature 98.1 F 06/21/18 07:03 Pulse Rate 54 L 06/21/18 07:03 Respiratory Rate 20 06/21/18 07:03 Blood Pressure 149/95 06/21/18 07:03 O2 Sat by Pulse Oximetry (%) 100 06/19/18 21:00 Constitutional: Yes: No Distress, Calm Eyes: Yes: Conjunctiva Clear HENT: Yes: Atraumatic Neck: Yes: Other (c-collar) Cardiovascular: Yes: Regular Rate and Rhythm Respiratory: Yes: Regular, CTA Bilaterally Gastrointestinal: Yes: Normal Bowel Sounds, Soft Musculoskeletal: Yes: WNL Extremities: Yes: WNL Edema: No Neurological: Yes: Alert, Oriented Psychiatric: Yes: Alert, Oriented Labs: CBC, BMP 06/20/18 10:34 06/20/18 10:34 Problem List - Problems (1) S/P neck surgery, follow-up exam Assessment/Plan: -surgery on board -pain management -incentive spirometer -c-collar for 23hrs/day -stool softener Code(s): Z09 - ENCNTR FOR F/U EXAM AFT TRTMT FOR COND OTH THAN MALIG NEOPLM (2) Dysphagia Assessment/Plan: -Modified Malena Swallow -SURGICAL ASST on board Code(s): R13.10 - DYSPHAGIA, UNSPECIFIED
[2018-06-21] MEDS: PREGABALIN 50 MG CAPSULE PO SCH ×2 (13:33→22:04)
[2018-06-21] MEDS ORDERED: ACETAMINOPHEN 325 MG TABLET (FP) PO PRN (14:53)
[2018-06-21] MEDS ORDERED: HYDROmorphone HCL 2 MG TABLET PO PRN (14:53)
[2018-06-21] MEDS: PATIENT'S OWN MEDICATION (NON-FORMULARY) (Clonidine Hcl [Clonidine Hcl Er] 0.1 MG) PO SCH (17:51)
[2018-06-21] MEDS: cloNIDine HCL 0.1 MG TABLET PO SCH (18:34)
[2018-06-21] MEDS: PANTOPRAZOLE 40 MG TABLET (FP) PO SCH (22:04)
[2018-06-22] MEDS: cloNIDine HCL 0.1 MG TABLET PO SCH (06:02)
[2018-06-22] MEDS: PREGABALIN 50 MG CAPSULE PO SCH ×2 (06:02→14:57)
[2018-06-22] MEDS: HEPARIN NA (PORCINE) 5,000 UNITS/ML 1ML VIAL SQ SCH ×2 (06:02→14:56)
[2018-06-22 07:49] LABS: HEMATOCRIT 32.8 % (32.4-45.2); HEMOGLOBIN 10.7 GM/dL (10.7-15.3); MCH 28.3 pg (25.7-33.7); MCHC 32.7 g/dl (32.0-36.0); MEAN CELL VOLUME 86.6 fl (80-96); MEAN PLT VOLUME 8.4 fl (7.5-11.1); PLATELET COUNT 236 K/MM3 (134-434); RBC 3.79 M/mm3 (3.60-5.2); RDW 13.4 % (11.6-15.6); WHITE BLOOD COUNT 6.4 K/mm3 (4.0-10.0)
[2018-06-22 09:10] LABS: ALK PHOS 51 U/L (45-117); ANION GAP 6 MMOL/L (8-16); BILIRUBIN,TOTAL 0.4 mg/dL (0.2-1); BLOOD UREA NITROGEN 19 mg/dL (7-18); CALCIUM 8.8 mg/dL (8.5-10.1); CHLORIDE 103 mmol/L (98-107); CO2 28 mmol/L (21-32); CREATININE 0.8 mg/dL (0.55-1.3); GLUCOSE,RANDOM 93 mg/dL (74-106); POTASSIUM 3.8 mmol/L (3.5-5.1); SGOT/AST 11 U/L (15-37); SGPT/ALT 14 U/L (13-61); SODIUM 137 mmol/L (136-145); TOT PROT 6.8 g/dl (6.4-8.2)
[2018-06-22] MEDS ORDERED: DEXAMETHASONE 4 MG TABLET (FP) PO SCH (10:00)
[2018-06-22] MEDS: amLODIPine BESYLATE 10 MG TABLET (FP) PO SCH (10:12)
[2018-06-22] MEDS: LOSARTAN POTASSIUM 50 MG TABLET (FP) PO SCH (10:12)
[2018-06-22] MEDS: PANTOPRAZOLE 40 MG TABLET (FP) PO SCH (10:12)
--- NOTE | 2018-06-22 12:21 | PN ---
Progress Note, [employer] - Note Progress Note: Selected Entries 06/21/18 06/21/18 06/21/18 01:54 07:03 09:30 Breakfast Diet Tolerated Lunch Temperature 98.2 F 98.1 F 98.1 F 06/21/18 06/21/18 06/21/18 10:20 15:01 15:02 Breakfast 75% Diet Tolerated Well Well Lunch 100% Temperature 98.1 F 06/21/18 06/21/18 06/22/18 17:22 21:00 07:30 Breakfast Diet Tolerated Lunch Temperature 97.7 F 98.2 F 98.2 F 06/22/18 10:00 Breakfast 100% Diet Tolerated Well Lunch Temperature Laboratory Tests 06/22/18 06:30 WBC 6.4 Pt tolerating diet well. Pending d/c. Pt educated on results of MBS.
--- NOTE | 2018-06-22 14:43 | DS ---
"Physical Examination Vital Signs: Vital Signs Temperature 98.2 F 06/22/18 07:30 Pulse Rate 57 L 06/21/18 21:00 Respiratory Rate 20 06/22/18 07:30 Blood Pressure 143/90 06/22/18 07:30 O2 Sat by Pulse Oximetry (%) 99 06/21/18 09:00 Findings/Remarks: Patient is a 68 y/o female admitted for c5-6 disc herniation and spondylosis. Patient is s/p C5 caudal hemicorpectomy with C6 rostral major hemicorpectomy , lordosis rastafari and reconstruction with Peek Cage and anterior plate. Constitutional: Yes: No Distress, Calm Eyes: Yes: Conjunctiva Clear HENT: Yes: Atraumatic Neck: Yes: Other (c-collar) Cardiovascular: Yes: Regular Rate and Rhythm Respiratory: Yes: Regular, CTA Bilaterally Gastrointestinal: Yes: Normal Bowel Sounds, Soft Musculoskeletal: Yes: WNL Extremities: Yes: WNL Edema: No Wound/Incision: Yes: Dressing Dry and Intact Neurological: Yes: Alert, Oriented Psychiatric: Yes: Alert, Oriented Labs: CBC, BMP 06/22/18 06:30 06/22/18 06:30 Discharge Summary Reason For Visit: DISC HERNIATION AND SPONDYLOSIS Current Active Problems Dysphagia (Acute) Post-op pain (Acute) S/P neck surgery, follow-up exam (Acute) Hospital Course: see progress notes Laboratory Tests 06/17/18 06/18/18 06/18/18 06:24 07:15 07:15 WBC 7.2 Corrected WBC (auto) RBC 4.07 Hgb 11.4 Hct 34.7 MCV 85.4 MCH 28.1 MCHC 32.9 RDW 13.5 Plt Count 210 MPV 8.0 Absolute Neuts (auto) 5.1 Total Counted Neutrophils % 71.0 Neutrophils % (Manual) Lymphocytes % 15.6 Lymphocytes % (Manual) Monocytes % 12.6 H Monocytes % (Manual) Eosinophils % 0.3 Basophils % 0.5 Nucleated RBC % 0 Platelet Estimate Platelet Comment Sodium 140 Potassium 3.9 Chloride 106 Carbon Dioxide 28 Anion Gap 7 L BUN 14 Creatinine 1.0 Creat Clearance w eGFR 54.97 Random Glucose 120 H Calcium 9.0 Total Bilirubin 0.4 AST 19 ALT 19 Alkaline Phosphatase 66 Total Protein 7.6 Albumin 3.5 Blood Type O POSITIVE Antibody Screen Negative 06/19/18 06/19/18 06/20/18 06:00 06:00 10:34 WBC 8.3 7.8 Corrected WBC (auto) [employer] RBC 3.77 4.11 Hgb 10.7 11.4 Hct 32.5 35.3 MCV 86.2 86.0 MCH 28.3 27.9 MCHC 32.8 32.4 RDW 13.4 13.5 Plt Count 196 222 MPV 8.1 9.2 D Absolute Neuts (auto) 6.4 Total Counted 100 Neutrophils % 81.9 Neutrophils % (Manual) 76.0 Lymphocytes % 10.6 D Lymphocytes % (Manual) 16.0 Monocytes % 7.3 Monocytes % (Manual) 8 Eosinophils % 0.0 D Basophils % 0.2 Nucleated RBC % 0 Platelet Estimate Adequate Platelet Comment [employer] Sodium 138 Potassium 3.8 Chloride 106 Carbon Dioxide 26 Anion Gap 6 L BUN 14 Creatinine 0.8 Creat Clearance w eGFR 71.12 Random Glucose 121 H Calcium 8.8 Total Bilirubin 0.4 AST 15 ALT 16 Alkaline Phosphatase 57 Total Protein 7.3 Albumin 3.2 L Blood Type Antibody Screen 06/20/18 06/22/18 06/22/18 10:34 06:30 06:30 WBC 6.4 Corrected WBC (auto) RBC 3.79 Hgb 10.7 Hct 32.8 MCV 86.6 MCH 28.3 MCHC 32.7 RDW 13.4 Plt Count 236 MPV 8.4 Absolute Neuts (auto) Total Counted Neutrophils % Neutrophils % (Manual) Lymphocytes % Lymphocytes % (Manual) Monocytes % Monocytes % (Manual) Eosinophils % Basophils % Nucleated RBC % Platelet Estimate Platelet Comment Sodium 138 137 Potassium 4.1 3.8 Chloride 106 103 Carbon Dioxide 26 28 Anion Gap 7 L 6 L BUN 17 19 H Creatinine 0.8 0.8 Creat Clearance w eGFR 71.12 71.12 Random Glucose 99 93 Calcium 9.6 8.8 Total Bilirubin 0.3 0.4 AST 15 11 L ALT 17 14 Alkaline Phosphatase 60 51 Total Protein 7.9 6.8 Albumin 3.4 3.0 L Blood Type Antibody Screen Active Medications Generic Name Dose Route Start Last Admin Trade Name Freq PRN Reason Stop Dose Admin Acetaminophen 650 mg 06/21/18 14:53 Tylenol - PO Q4H PRN PAIN LEVEL 1-5 Amlodipine Besylate 10 mg 06/18/18 10:00 06/22/18 10:12 Norvasc - PO 10 mg DAILY [facility] Administration Benzocaine/Menthol 1 each 06/18/18 07:34 06/21/18 01:27 Cepacol Lozenge - MM 1 each PRN PRN Administration SORE THROAT Clonidine 0.1 mg 06/21/18 18:00 06/22/18 06:02 Catapres - PO 0.1 mg 0600,1800 [facility] Administration Dexamethasone 4 mg 06/22/18 10:00 06/22/18 10:12 Decadron - PO 4 mg DAILY [facility] Administration Heparin Sodium (Porcine) 5,000 unit 06/17/18 22:00 06/22/18 06:02 Heparin - SQ 5,000 unit TID [facility] Administration Hydromorphone HCl 2 mg 06/21/18 14:53 06/21/18 22:04 Dilaudid - PO 2 mg Q6H PRN Administration PAIN LEVEL 7 - 10 Losartan Potassium 100 mg 06/18/18 10:00 06/22/18 10:12 Cozaar - PO 100 mg DAILY [facility] Administration Pantoprazole Sodium 40 mg 06/21/18 22:00 06/22/18 10:12 Protonix - PO 40 mg BID [facility] Administration Pregabalin 50 mg 06/17/18 22:00 06/22/18 06:02 Lyrica - PO 50 mg TID [facility] Administration Condition: Stable - Instructions Diet, Activity, Other Instructions: Post Operative Instructions Physical Activity Resume your normal everyday activity as tolerated. No heavy lifting or exercise until seen by your surgeon. You may walk unlimited amounts and climb stairs. You may resume driving the car when you feel safe and comfortable behind the wheel and you are no longer wearing your brace. Do not operate a vehicle while taking narcotic medication. Brace If you had neck surgery, wear surgical collar 23 hr/day. Remove to shower only. Wound Care Keep your incision clean, dry and covered at all times. Apply an occlusive dressing (Saran wrap or Tegaderm) when showering to avoid getting your incision wet. Do not submerge incision or apply ointments or creams. The acrly will be removed in the office in 10-14 days post-op. Diet There are no dietary restrictions. Eat healthy, high-fiber foods. Drink 6-8 glasses of liquid each day. This will assist in keeping your bowels regular. Pain Management You may take Tylenol or acetaminophen. Any pain prescription medication ordered should be taken as prescribed for moderate to severe pain. Call Dr Kate for any of the following: Severe pain not relieved by medication Fever of 101 or higher Excessive bleeding or drainage on dressing Inability to urinate Any chest pain or shortness of breath, seek Emergency Care. Call the office to confirm a post-operative appointment for 2-3 weeks post-op Lalo Davenport MD [facility] [address] [place] [address] [facility] DIRECTOR TALENT ACQUISITION: This report was requested by: Rubén Salcedo | Reference #: [id number] Patient to follow up with PMD in 1 week continue with medication regimen as prescribed follow up with neurosurgery as instructed return to Er if fever, AMS, respiratory distress, chest pain Referrals: Lalo Davenport MD, FAANS [Staff Physician] - Disposition: HOME - Home Medications Comprehensive Discharge Medication List: Ambulatory Orders Albuterol Sulfate [Proair Respiclick] 90 mcg IH PRN PRN 06/03/18 Amlodipine Besylate 10 mg PO DAILY 06/03/18 Cetirizine HCl [Zyrtec -] 10 mg PO DAILY 06/03/18 Docusate Sodium [Colace -] 200 mg PO HS 06/03/18 Fluticasone/Salmeterol [Advair 250-50 Diskus] 1 each IH BID 06/03/18 Furosemide [Lasix] 20 mg PO DAILY 06/03/18 Losartan Potassium 100 mg PO DAILY 06/03/18 Metoprolol Succinate 50 mg PO DAILY 06/03/18 Montelukast Sodium [Singulair] 10 mg PO DAILY 06/03/18 Omalizumab [Xolair] 150 mg SQ PRN PRN 06/03/18 Omeprazole Magnesium [Prilosec Otc] 20 mg PO PRN PRN 06/03/18 Prednisolone 10 mg PO PRN PRN 06/03/18 Pregabalin [Lyrica] 50 mg PO TID 06/03/18 Diazepam [Valium] 2 mg PO TID PRN #8 tablet MDD 3 06/21/18 cloNIDine HCL [Catapres -] 0.1 mg PO BID@0600,1800 06/21/18 oxyCODONE HCL [Roxicodone -] 5 mg PO Q6H PRN #20 tablet MDD 4 06/21/18"
[2018-06-22 15:40] VITALS: BP 128/90; PULSE 60; TEMP 98.2
--- NOTE | 2018-06-23 12:51 | SURG ---
Surgery Ceramics Artist Note Ceramics Artist: Guerrero Mendez PA-C Date of Service: 06/17/18 Diagnosis: Cervical Spondylotic myelopathy Procedure: 1. Interbody cage 2. C5 caudal hemicorpectomy with resection of osteophytes and posterior longitudinal ligament 3. C6 Rostral hemicorpectomy with resection of osteophytes and posterior longitudinal ligament 4. Anterior instrumentation C5-C6 (technically challenging) 5. Fluoroscopy 6. Microdissection 7. C5/6 arthrodesis 8. Local autograft 9. Deformity correction (taoist of lordosis) I was present for the entirety of the operative procedure. For further detail, please refer to operative report. Visit type - Case Type Case Type: Scheduled - Emergency Emergency Visit: No - New patient This patient is new to me today: Yes Date on this admission: 06/23/18 - Critical Care Critical Care patient: No
== END 2018-06-22 15:48 | disposition home or self-care (01) | DRG 321 ==
LOC: JSAMEDAYSX 05:08 → J8W 15:03
PROVIDERS: ADMIT Family Medicine; ATTEND Family Medicine
PROC: 0RB30ZZ Excision of Cervical Vertebral Disc, Open Approach (ICD-10-PCS; 2018-06-17)
PROC: 01N10ZZ Release Cervical Nerve, Open Approach (ICD-10-PCS; 2018-06-17)
PROC: B01BZZZ Fluoroscopy of Spinal Cord (ICD-10-PCS; 2018-06-17)
PROC: 4A11X4G Monitoring of Peripheral Nervous Electrical Activity, Intraoperative, External Approach (ICD-10-PCS; 2018-06-17)
PROC: 0MBC0ZZ Excision of Upper Spine Bursa and Ligament, Open Approach (ICD-10-PCS; 2018-06-17)
PROC: 0RG10A0 Fusion of Cervical Vertebral Joint with Interbody Fusion Device, Anterior Approach, Anterior Column, Open Approach (ICD-10-PCS; principal; 2018-06-17 08:00)
DX: M47.12 Other spondylosis with myelopathy, cervical region (principal); M50.222 Other cervical disc displacement at C5-C6 level; Z87.891 Personal history of nicotine dependence; G89.18 Other acute postprocedural pain; R13.10 Dysphagia, unspecified; M40.40 Postural lordosis, site unspecified; M24.28 Disorder of ligament, vertebrae
CPT/HCPCS: 36415; 72125-TC; 74230-TC-FY; 76000-TC-FY; 80048; 80053; 85025; 85027; 86850; 86900; 86901; 92611-GN; 94760; 97116-GP; 97162-GP; J0131; J0735; J1644